=== PATIENT | male | born 1985 | race Two or more races ===

== ENCOUNTER 2017-08-07 15:48 | Emergency (ER) | payer MEDICAID, OTHER ==
[~2017-08-07] VITALS: Ht 175.3 cm; Wt 133.4 kg
[2017-08-07] MEDS ORDERED: BENZ2TAB7 PO (16:14)
[2017-08-07] MEDS ORDERED: OXCA300T PO (16:14)
[2017-08-07] MEDS ORDERED: TOPI25TA49 PO (16:14)
[2017-08-07] MEDS ORDERED: HALO5TAB PO (16:14)
[2017-08-07] MEDS ORDERED: HALO5TAB12 PO (16:14)
[2017-08-07 16:27] LABS: BASOPHILS # (AUTO) 0.1 K/uL (0.0-8.0); BASOPHILS % (AUTO) 1.2 % (0.0-2.0); EOSINOPHILS # (AUTO) 0.3 K/uL (0.0-0.7); EOSINOPHILS % (AUTO) 3.3 % (0.0-7.0); HEMATOCRIT 46.2 % (36.7-47.1); HEMOGLOBIN 16.3 g/dL (12.5-16.3); LYMPHOCYTES % (AUTO) 38.4 % (20.5-51.5); MEAN CORPUSCULAR HEMOGLOBIN 31.3 uug (23.8-33.4); MEAN CORPUSCULAR HGB CONC 35 g/dL (32.5-36.3); MEAN CORPUSCULAR VOLUME 88.4 fL (73.0-96.2); MONOCYTES # (AUTO) 0.6 K/uL (2.0-10.0); MONOCYTES % (AUTO) 5.4 % (0.0-11.0); NEUTROPHILS # (AUTO) 5.4 K/uL (1.8-8.9); NEUTROPHILS % (AUTO) 51.7 % (38.5-71.5); PLATELET COUNT (AUTO) 227 K/uL (152-348); RED BLOOD CELL COUNT(AUTO) 5.23 MIL/uL (4.06-5.63); WHITE BLOOD COUNT (AUTO) 10.4 K/uL (3.6-10.2)
[2017-08-07] MEDS ORDERED: IV NS 1000 ML 1,000 ML IV ONE (16:30)
--- NOTE | 2017-08-07 16:33 | NUR ---
Pt refused Saline lock, and Md WILBER aware.
[2017-08-07 16:43] LABS: CREATININE 1.1 mg/dL (0.6-1.3); POTASSIUM 4.5 mmol/L (3.5-5.1)
[2017-08-07 16:50] LABS: BILIRUBIN,TOTAL 0.9 mg/dL (0.2-1.0)
--- NOTE | 2017-08-07 17:08 | NUR ---
Patient eloped from facility. ER physician notified.
[2017-08-07 17:12] LABS: *BILIRUBIN,URIN NEGATIVE (NEGATIVE); *BLOOD, URINE NEGATIVE (NEGATIVE); *CLARITY,URINE CLEAR (CLEAR); *COLOR,URINE YELLOW (YELLOW); *KETONES,URINE NEGATIVE (NEGATIVE); *PROTEIN,URINE TRACE (NEGATIVE); *UROBILINOGEN,URINE 0.2 E.U./dl (NORMAL); LEUKOCYTE ESTERASE ,URINE NEGATIVE (NEGATIVE); NITRITE, URINE NEGATIVE (NEGATIVE); PH,URINE 5.5 (5.0-8.0); UGLUCOSE NEGATIVE (NEGATIVE)
[2017-08-07 17:28] LABS: BACTERIA,URINE NONE SEEN /HPF (NONE SEEN); RBC,URINE 0-3 /HPF (0-3); SQUAMOUS EPITHELIAL CELL,UR FEW /HPF (NONE SEEN); WBC,URINE 0-3 /HPF (0-3)
== END 2017-08-07 17:12 | disposition left against medical advice (07) ==
LOC: ER 15:53
DX: K62.5 Hemorrhage of anus and rectum (principal); R00.0 Tachycardia, unspecified; F41.9 Anxiety disorder, unspecified; Z79.899 Other long term (current) drug therapy
CPT/HCPCS: 36415; 70030-TC; 85025; 85610; 93005; A4663